=== PATIENT | male | born 1995 | race Caucasian/White ===

== ENCOUNTER 2017-01-07 15:43 | Emergency (ER) | payer OTHER ==
[~2017-01-07] VITALS: Ht 182.9 cm; Wt 77.3 kg
[2017-01-07 16:06] VITALS: BP 131/72; PULSE 72; RESP 16; O2SAT 100
--- NOTE | 2017-01-07 16:11 | ED.REPORT ---
HPI-Head Prob / Injury Date of Service Jan 07, 2017 ED Provider: History of Present Illness: 21-year-old male here for a laceration on his left forehead. One to 2 hours prior to arrival his head smacked the lid of a garbage can. No fall, no neck pain, no loss of consciousness. No nausea or vomiting. He is mentating normally. Tetanus is up-to-date. Nursing Notes Stated Complaint: LACERATION ON FOREHEAD Chief Complaint: Head, Face, Neck Trauma Nursing Notes Reviewed: Yes Allergies: Coded Allergies: amoxicillin (Verified Allergy, Intermediate, 01/07/17) General Time Seen by Provider: 16:09 Chief Complaint Laceration Hx Obtained From: Patient Arrived By: Walk-in Onset Occurred: 1 - 4 hours ago Symptom Duration: Since onset Progression Since Onset: Constant Location: : Forehead Radiation: Does not radiate Severity: Current: Mild Severity: Maximum: Mild Immunizations: All up to date Similar Sx Previous: No Risk-Head Prob / Injury )( IC Bleed Risk Strat No Blood thinners Past Medical History Past Medical History Notes: denies Review of Systems Basic Review of Systems Respiratory: No shortness of breath, No cough, No wheeze Cardiovascular: No chest pain, No dyspnea on exertion, No orthopnea, No parox noct dyspnea, No palpitations Allergy / Immune: No allergy Psychiatric: Normal thought content Constitutional: Denies: Fatigue Eyes: Denies: Blurred bilateral, Eye pain bilateral, Visual loss bilateral Musculoskeletal: Denies: Neck pain Neurologic: Denies: Change LOC, Confusion, Dizziness, Focal weakness, Lightheaded, Numbness, Problem walking, Slurred speech Complete sys rev & neg: except as marked. Physical Exam Physical Exam Notes: 3cm lac forehead Initial Vital Signs Vital Signs (First) Date Time Temp Pulse Resp B/P Pulse Ox O2 Delivery O2 Flow Rate FiO2 01/07/17 16:06 37.1 72 16 131/72 100 Room Air Initial VS: Reviewed, Vital signs normal Respiratory: Breath sounds normal, Clear to auscultation, No respiratory distress Cardiovascular: Regular rate & rhythm, Heart sounds normal, Intact distal pulses Extremities: Vascular intact, Neuro intact, No swelling, No tenderness Skin: Warm, Dry, No cyanosis Psychiatric: Mood/affect normal, Behavior normal, Normal thought content General/Constitutional: Awake, Alert Head / Eyes: Atraumatic, Normocephalic, PERRL, EOMI, No nystagmus, No periorbital swelling, Conjunctiva NL Lac L forehead, not gaping. Neck: Atraumatic, Supple, Full range of motion, No swelling, Non-tender, No midline vertebral tend, No masses Procedures Laceration Management Laceration Management: dermabond Procedure Performed by: Allied health pract Consent / Setup / Site Prep: Consent from patient Wound Length: 3 cm Wound Preparation: Shurclens Irrigation: Copious Discharge & Departure Primary Impression: Facial laceration Encounter type: initial encounter Qualified Code: S01.81XA - Laceration without foreign body of other part of head, initial encounter All VS Reviewed: Yes Condition: Stable Patient Instructions: Laceration (ED) Additional Instructions: Apply ice to laceration. Take Tylenol or ibuprofen as needed for pain. Watch for signs of infection including redness, swelling, increased pain or purulent drainage and follow up immediately if these occur. Watch for signs of concussion and follow-up with your PCP if these occur. Return immediately to the ER if projectile vomiting, altered mental status, or any other worrisome symptoms as discussed. Do not get laceration wet for 24 hours then you can lightly shower, don't scrub the wound. Apply ice if it becomes swollen EDSupervising Provider for APC: Bashir Fitch Linnea K ARNP Jan 07, 2017 16:11
[2017-01-07] MEDS ORDERED: Tissue Adhesive Liq (CS Supplied) TOPICAL ONE (16:25)
== END 2017-01-07 17:00 | disposition home or self-care (01) ==
LOC: SED 15:43
DX: S01.81XA Laceration without foreign body of other part of head, initial encounter (principal); W01.198A Fall on same level from slipping, tripping and stumbling with subsequent striking against other object, initial encounter; Y93.89 Activity, other specified; Y92.009 Unspecified place in unspecified non-institutional (private) residence as the place of occurrence of the external cause; Y99.8 Other external cause status; Z88.1 Allergy status to other antibiotic agents